=== PATIENT | male | born 1985 | race African-American/Black ===

== ENCOUNTER 2019-09-03 18:07 | Emergency (ER) | payer MEDICAID ==
[~2019-09-03] VITALS: Ht 170.2 cm; Wt 86.4 kg
[2019-09-03 19:50] VITALS: BP 124/76
== END 2019-09-03 19:55 | disposition home or self-care (01) ==
LOC: EMS 18:10
DX: S93.601A Unspecified sprain of right foot, initial encounter (principal); W21.05XA Struck by basketball, initial encounter; Y93.67 Activity, basketball; Y92.89 Other specified places as the place of occurrence of the external cause; Y99.8 Other external cause status

== ENCOUNTER 2021-02-25 11:52 | Emergency (ER) | payer MEDICAID ==
[~2021-02-25] VITALS: Ht 172.7 cm; Wt 77.3 kg
[2021-02-25] MEDS ORDERED: BACITRACIN 0.9 GM PACKET OINTMENT TP ONE (13:15)
[2021-02-25 13:22] VITALS: BP 124/70
== END 2021-02-25 13:28 | disposition home or self-care (01) ==
LOC: EMS 11:52
DX: S61.401A Unspecified open wound of right hand, initial encounter (principal); K02.9 Dental caries, unspecified; X58.XXXA Exposure to other specified factors, initial encounter; Y93.89 Activity, other specified; Y92.89 Other specified places as the place of occurrence of the external cause; Y99.8 Other external cause status
CPT/HCPCS: 99283

== ENCOUNTER 2021-05-18 17:07 | Emergency (ER) | payer MEDICAID ==
[~2021-05-18] VITALS: Ht 172.7 cm; Wt 77.3 kg
[2021-05-18 17:13] VITALS: BP 121/72
[2021-05-18] MEDS ORDERED: CLINDAMYCIN HCL 150 MG CAPSULE PO ONE (17:45)
[2021-05-18] MEDS ORDERED: SILVER SULFADIAZINE 1% 25 GM CREAM TP ONE (17:45)
== END 2021-05-18 18:57 | disposition home or self-care (01) ==
LOC: EMS 17:09
DX: T25.221A Burn of second degree of right foot, initial encounter (principal); F12.90 Cannabis use, unspecified, uncomplicated; X12.XXXA Contact with other hot fluids, initial encounter; Y93.89 Activity, other specified; Y92.89 Other specified places as the place of occurrence of the external cause; Y99.8 Other external cause status
CPT/HCPCS: 16020; 99283

== ENCOUNTER 2021-11-02 01:51 | Emergency (ER) | payer MEDICAID ==
[~2021-11-02] VITALS: Ht 172.7 cm; Wt 77.3 kg
[2021-11-02 01:52] VITALS: BP 110/47
== END 2021-11-02 03:30 | disposition left against medical advice (07) ==
LOC: EMS 01:54
DX: F15.90 Other stimulant use, unspecified, uncomplicated (principal); Z53.21 Procedure and treatment not carried out due to patient leaving prior to being seen by health care provider

== ENCOUNTER 2022-07-31 00:20 | Emergency (ER) | payer MEDICAID ==
[~2022-07-31] VITALS: Ht 180.3 cm; Wt 81.8 kg
[2022-07-31 00:24] VITALS: BP 118/98
== END 2022-07-31 01:29 | disposition left against medical advice (07) ==
LOC: EMS 00:20
DX: H92.03 Otalgia, bilateral (principal); Z53.21 Procedure and treatment not carried out due to patient leaving prior to being seen by health care provider

== ENCOUNTER 2023-01-18 21:10 | Emergency (ER) | payer MEDICAID ==
[~2023-01-18] VITALS: Ht 170.2 cm; Wt 75.0 kg
[2023-01-18 21:15] VITALS: BP 140/77
[2023-01-18] MEDS ORDERED: CLIN-142 PO (21:39)
== END 2023-01-18 21:47 | disposition home or self-care (01) ==
LOC: EMS 21:15
DX: S61.401A Unspecified open wound of right hand, initial encounter (principal); F15.90 Other stimulant use, unspecified, uncomplicated; X58.XXXA Exposure to other specified factors, initial encounter; Y93.89 Activity, other specified; Y92.89 Other specified places as the place of occurrence of the external cause; Y99.8 Other external cause status
CPT/HCPCS: 99283; Z7502

== ENCOUNTER 2023-03-19 00:24 | Emergency (ER) | payer MEDICAID ==
[~2023-03-19] VITALS: Ht 170.2 cm; Wt 75.0 kg
[~2023-03-19 00:24] MED LIST: CLIN-142 PO
[2023-03-19 00:25] VITALS: BP 125/62
== END 2023-03-19 00:38 | disposition left against medical advice (07) ==
LOC: EMS 00:24
DX: Z53.21 Procedure and treatment not carried out due to patient leaving prior to being seen by health care provider (principal)
CPT/HCPCS: 99281; Z7502

== ENCOUNTER 2023-09-24 23:29 | Emergency (ER) | payer MEDICAID ==
[~2023-09-24] VITALS: Ht 175.3 cm; Wt 77.0 kg
[2023-09-24 23:35] VITALS: BP 129/68; PULSE 99; RESP 16; TEMP 97.3
[2023-09-24] MEDS ORDERED: BACTDSB PO (23:56)
[2023-09-24] MEDS ORDERED: IBUP-1492 PO (23:56)
[2023-09-24] MEDS ORDERED: CEPH-558 PO (23:56)
[2023-09-25] MEDS ORDERED: CEPHALEXIN MONOHYDRATE 500 MG CAPSULE PO ONE
[2023-09-25] MEDS ORDERED: SULFAMETHOX/TRIMETH DS 800-160 MG/TABLET PO ONE
[2023-09-25] MEDS ORDERED: IBUPROFEN 800 MG TABLET PO ONE
== END 2023-09-25 00:15 | disposition home or self-care (01) ==
LOC: EMS 23:30
DX: L02.214 Cutaneous abscess of groin (principal); F15.90 Other stimulant use, unspecified, uncomplicated
CPT/HCPCS: 10060; 99284; Z7502; Z7610

== ENCOUNTER 2023-11-01 04:27 | Emergency (ER) | payer MEDICAID ==
[~2023-11-01] VITALS: Ht 162.6 cm; Wt 63.6 kg
[~2023-11-01 04:27] MED LIST changes: +BACTDSB PO; +CEPH-558 PO; +IBUP-1492 PO
[2023-11-01 04:47] VITALS: BP 130/68; PULSE 86; RESP 18; TEMP 98.3
== END 2023-11-01 05:24 | disposition left against medical advice (07) ==
LOC: EMS 04:29
DX: M79.641 Pain in right hand (principal); Z53.21 Procedure and treatment not carried out due to patient leaving prior to being seen by health care provider
CPT/HCPCS: 99281; Z7502